=== PATIENT | male | born 1995 | race African-American/Black ===

== ENCOUNTER 2022-10-30 23:11 | Emergency (ER) | payer BC ==
[~2022-10-30] VITALS: Ht 182.9 cm; Wt 63.5 kg
--- NOTE | 2022-10-30 23:47 | NUR ---
BIBS C/O CHEST PAIN AND SOB X 2 HRS BACK END [employer]
--- NOTE | 2022-10-30 23:59 | NUR ---
DR. MUÑOZ AT BEDSIDE
[2022-10-31] MEDS ORDERED: PANTOPRAZOLE 40 MG VIAL IV ONE
[2022-10-31] MEDS ORDERED: LIDOCAINE VISCOUS 2% UD 15 ML UDC MM ONE
[2022-10-31] MEDS ORDERED: MAG HYDROX/AL HYDROX/SIMETH 30 ML UDC PO ONE
--- NOTE | 2022-10-31 00:19 | NUR ---
20G STARTED ON R AC. BLOOD COLLECTED SENT TO LAB
[2022-10-31] MEDS ORDERED: LIDOCAINE VISCOUS 2% UD 15 ML UDC ONE (00:24)
[2022-10-31] MEDS ORDERED: MAG HYDROX/AL HYDROX/SIMETH 30 ML UDC ONE (00:24)
[2022-10-31] MEDS ORDERED: PANTOPRAZOLE 40 MG VIAL ONE (00:24)
[2022-10-31 00:45] LABS: BASOPHILS # (AUTO) 0.1 K/uL (0.0-0.2); BASOPHILS % (AUTO) 1.3 % (0.0-2.0); EOSINOPHILS % (AUTO) 7.3 % (0.0-6.0); HEMATOCRIT 42 % (39-51); LYMPHOCYTES # (AUTO) 2.1 K/uL (0.8-4.8); LYMPHOCYTES % (AUTO) 51.4 % (20.0-44.0); MEAN CORPUSCULAR HGB CONC 34 g/dl (31.0-36.0); MEAN CORPUSCULAR VOLUME 91 fL (80-96); MONOCYTES # (AUTO) 0.3 K/uL (0.1-1.30); MONOCYTES % (AUTO) 7.6 % (2.0-12.0); NEUTROPHILS # (AUTO) 1.3 K/uL (1.8-8.9); NEUTROPHILS % (AUTO) 32.4 % (43.0-81.0); PLATELET COUNT (AUTO) 256 K/uL (150-450); RED BLOOD CELL COUNT(AUTO) 4.64 MIL/uL (4.5-6.0)
[2022-10-31 01:02] LABS: ALANINE AMINOTRANSFERASE 31 U/L (12-78); ALKALINE PHOSPHATASE 69 U/L (46-116); ASPARTATE AMINOTRANSFERASE 14 U/L (15-37); BILIRUBIN,DIRECT 0.1 mg/dL (0.0-0.2); BILIRUBIN,TOTAL 0.4 mg/dL (0.2-1.0); CALCIUM, SERUM 9.1 mg/dL (8.5-10.1); CARBON DIOXIDE 28 mmol/L (21-32); CHLORIDE 106 mmol/L (98-107); CREATININE 1.2 mg/dL (0.6-1.3); GLUCOSE 98 mg/dL (74-106); LIPASE 105 U/L (73-393); POTASSIUM 3.9 mmol/L (3.5-5.1); SODIUM SERUM 141 mmol/L (136-145); TOTAL PROTEIN, SERUM 7.1 g/dL (6.4-8.2); UREA NITROGEN, BLOOD 11 mg/dL (7-18)
--- NOTE | 2022-10-31 02:20 | NUR ---
REPEAT TROPONIN DONE AT BEDSIDE
--- NOTE | 2022-10-31 02:22 | NUR ---
REPEAT EKG AT BEDSIDE
[2022-10-31] MEDS ORDERED: PANT40TA2 PO (03:05)
[2022-10-31 03:17] VITALS: BP 132/74
--- NOTE | 2022-10-31 03:17 | NUR ---
Patient discharged to home in stable condition. Written and verbal after care instructions given. Patient verbalizes understanding of instruction.IV removed. Catheter intact and site benign. Pressure and 4x4 applied to site. No bleeding noted.
== END 2022-10-31 03:18 | disposition home or self-care (01) ==
LOC: ER 23:37
DX: R07.89 Other chest pain (principal); K21.9 Gastro-esophageal reflux disease without esophagitis; Z88.1 Allergy status to other antibiotic agents
CPT/HCPCS: 99285; 93005 ×2; 96374; 71045; 85025; 80048; 83690; 80076; 36415; 84484 ×2; C9113